=== PATIENT | female | born 1940 | race Caucasian/White ===

== ENCOUNTER 2017-12-07 06:42 | Day surgery (SDC) | payer OTHER ==
[2017-12-07] MEDS ORDERED: Ringers Lactate 1,000 ML IV ONE (07:39)
[2017-12-07] MEDS ORDERED: PROPOFOL 200 MG/20 ML VIAL IV ONE ×3 (09:14→10:30)
--- NOTE | 2017-12-07 09:43 | ENDO RPT ---
[address], [address] EGD PROCEDURE REPORT EXAM DATE: 12/07/2017 PATIENT NAME: Suzi Palmer MR#: [id number] BIRTHDATE: 1940 ATTENDING: Juvencio Hwang Dr STATUS: outpatient VOLCANOLOGIST: Zaynab Panda and Maria D Rivas RN INDICATIONS: The patient is a 77 yr old Female here for an EGD due to GERD and chronic unexplained diarrhea PROCEDURE PERFORMED: EGD with biopsy MEDICATIONS: Per Anesthesia. TOPICAL ANESTHETIC: none CONSENT: The patient understands the risks and benefits of the procedure and understands that these risks include, but are not limited to: sedation, allergic reaction, infection, perforation and/or bleeding. Alternative means of evaluation and treatment include, among others: physical exam, x-rays, and/or surgical intervention. The patient elects to proceed with this endoscopic procedure. DESCRIPTION OF PROCEDURE: During intra-op preparation period all mechanical medical equipment was checked for proper function. Hand hygiene and appropriate measures for infection prevention was taken. Procedure, possible complications, and alternatives including but not limited to the possibility of bleeding, perforation, tear, infection, sepsis, need for surgery, need for blood transfusion, and anesthesia related complications were explained to the patient. After the risks, benefits and alternatives of the procedure were thoroughly explained, Informed consent was verified, confirmed and timeout was successfully executed by the treatment team. The patient was placed in the left lateral position. The patient was anesthetized with topical anesthesia. Through the anesthetized oropharyngeal area, the scope was passed without any difficulty. The EG-2990i ([id number]) and Pentax EG-[id number] ([id number]) endoscope was introduced through the mouth and advanced to the third portion of the duodenum. Retroflexed views revealed a moderate sized hiatal hernia. The gastroscope was then slowly withdrawn and removed. A moderate sized hiatal hernia was found Multiple erosions were found in the antrum. Multiple biopsies were obtained and sent to pathology. Duodenitis was found in the bulb and descending duodenum. Multiple ulcers were found in the bulb of the duodenum. ADVERSE EVENTS: There were no complications. IMPRESSIONS: 1. A moderate sized hiatal hernia 2. Multiple ( 50) hemorrhagic erosions with associated dark heme in the antrum 3. Mild duodenitis in the bulb and descending duodenum 4. Multiple (3) small shallow 2-3 mm ulcers in the apex of bulb of the duodenum RECOMMENDATIONS: 1. await biopsy results 2. acid suppression therapy REPEAT EXAM: Juvencio Hwang Dr eSigned: Juvencio Hwang Dr 12/07/2017 9:42 AM CPT CODES: ICD9 CODES: PATIENT NAME: Suzi Palmer MR#: [id number]
--- NOTE | 2017-12-07 10:13 | ENDO RPT ---
[address], [address] COLONOSCOPY PROCEDURE REPORT EXAM DATE: 12/07/2017 PATIENT NAME: Suzi Palmer MR #: [id number] BIRTHDATE: 1940 ATTENDING: Juvencio Hwang Dr STATUS: outpatient [employer] CONSULTANT: Maria D Rivas RN and Zaynab Panda INDICATIONS: The patient is a 77 yr old Female here for a colonoscopy due to change in bowel habits, unexplained chronic diarrhea, and constipation PROCEDURE PERFORMED: Colonoscopy with biopsy and Colonoscopy with snare polypectomy MEDICATIONS: Per Anesthesia. ESTIMATED BLOOD LOSS: None CONSENT: The patient understands the risks and benefits of the procedure and understands that these risks include, but are not limited to: sedation, allergic reaction, infection, perforation and/or bleeding. Alternative means of evaluation and treatment include, among others: physical exam, x-rays, and/or surgical intervention. The patient elects to proceed with this endoscopic procedure. DESCRIPTION OF PROCEDURE: During intra-op preparation period all mechanical medical equipment was checked for proper function. Hand hygiene and appropriate measures for infection prevention was taken. Procedure, possible complications, alternatives including, but not limited to possibility of bleeding, perforation, tear, infection, sepsis, need for surgery, need for blood transfusion, were explained to the patient. After the risks, benefits and alternatives of the procedure were thoroughly explained, Informed consent was verified, confirmed and timeout was successfully executed by the treatment team. The patient was placed in the left lateral position. A digital rectal exam was performed and revealed external hemorrhoids. After appropriate level of anesthesia, the scope was passed. The EG-[id number] ([id number]) and EC-[id number] ([id number]) endoscope was introduced through the anus and advanced to the cecum. The quality of the prep was fair. The instrument was then slowly withdrawn as the colon was fully examined. Scope withdrawal time was 9 minutes. COLON FINDINGS: A sessile polyp measuring 6 mm in size was found in the distal transverse colon. A polypectomy was performed using snare cautery. Mild diverticulosis was noted in the sigmoid colon. Small internal and external hemorrhoids were found. Retroflexed views revealed small hemorrhoids. The scope was then completely withdrawn from the patient and the procedure terminated. ADVERSE EVENTS: There were no complications. IMPRESSIONS: 1. 6 mm sessile polyp in the distal transverse colon; polypectomy was performed using snare cautery 2. Mild diverticulosis in the sigmoid colon 3. Small internal / external hemorrhoids 4. Intubation to cecum RECOMMENDATIONS: 1. await biopsy results 2. avoid NSAIDS for 2 weeks RECALL: Juvencio Hwang Dr eSigned: Juvencio Hwang Dr 12/07/2017 10:13 AM CPT CODES: ICD9 CODES: 1. 455.5 External hemorrhoids with other complication 2. 211.3 Benign neoplasm of colon PATIENT NAME: Suzi PalmerJose A MR#: [id number]
== END 2017-12-07 10:42 | disposition home or self-care (01) ==
LOC: ENDO 06:42
PROVIDERS: ATTEND Internal Medicine Gastroenterology
PROC: 0DBL8ZX Excision of Transverse Colon, Via Natural or Artificial Opening Endoscopic, Diagnostic (ICD-10-PCS; 2017-12-07)
PROC: 0DB68ZX Excision of Stomach, Via Natural or Artificial Opening Endoscopic, Diagnostic (ICD-10-PCS; principal; 2017-12-07 09:00)
PROC: 0DB88ZX Excision of Small Intestine, Via Natural or Artificial Opening Endoscopic, Diagnostic (ICD-10-PCS; 2017-12-07 09:00)
DX: K29.50 Unspecified chronic gastritis without bleeding (principal); D12.3 Benign neoplasm of transverse colon; K25.4 Chronic or unspecified gastric ulcer with hemorrhage; K26.9 Duodenal ulcer, unspecified as acute or chronic, without hemorrhage or perforation; K57.90 Diverticulosis of intestine, part unspecified, without perforation or abscess without bleeding; K29.80 Duodenitis without bleeding; K44.9 Diaphragmatic hernia without obstruction or gangrene; K64.8 Other hemorrhoids; K64.4 Residual hemorrhoidal skin tags; Z80.3 Family history of malignant neoplasm of breast; I10 Essential (primary) hypertension; M19.90 Unspecified osteoarthritis, unspecified site; F32.9 Major depressive disorder, single episode, unspecified; G47.00 Insomnia, unspecified; K21.9 Gastro-esophageal reflux disease without esophagitis; Z88.6 Allergy status to analgesic agent
CPT/HCPCS: 88305; 88312